=== PATIENT | female | born 1980 | race American Indian/Alaskan Native ===

== ENCOUNTER 2020-01-17 03:02 | Emergency (ER) | payer OTHER ==
[2020-01-17 04:20] LABS: Basophils % (Auto) 0.6 % (0.0-1.8); Eosinophils % (Auto) 0.4 % (0.0-4.3); Hematocrit 36.1 % (30.3-42.9); Hemoglobin 11.7 gm/dl (10.1-14.3); Lymphocytes # (Auto) 0.5 K/mm3 (1.2-5.4); Lymphocytes % (Auto) 10.3 % (13.4-35.0); Mean Corpuscular HGB Conc 33 % (30-34); Mean Corpuscular Volume 84 fl (79-97); Monocytes # (Auto) 0.2 K/mm3 (0.0-0.8); Monocytes % (Auto) 4.7 % (0.0-7.3); Platelet Count 220 K/mm3 (140-440); Red Blood Count 4.32 M/mm3 (3.65-5.03); Red Cell Distribution Width 16.5 % (13.2-15.2)
[2020-01-17 04:33] LABS: Alanine Aminotransferase 7 units/L (7-56); Albumin 4.1 g/dL (3.9-5); BUN/Creatinine Ratio 8; Blood Urea Nitrogen 5 mg/dL (7-17); Calcium 8.9 mg/dL (8.4-10.2); Hemolysis Index 20
[2020-01-17 04:56] LABS: Mucus,Urine FEW /HPF; WBC,Urine < 1.0 /HPF (0.0-6.0)
[2020-01-17 04:57] LABS: Bilirubin,Urine NEG (Negative); Blood,Urine NEG (Negative); Color,Urine Straw (Yellow); Protein,Urine <15 mg/dL mg/dL (Negative); Urobilinogen,Urine < 2.0 mg/dL (<2.0)
--- NOTE | 2020-01-17 06:26 | Emergency Department Report ---
HPI - General Chief Complaint: Abdominal Pain PUI?: No Time Seen by Provider: 01/17/20 06:12 - [facility] HPI: Room 1 The patient is a 39-year-old female present with a chief complaint of abdominal pain. The patient states she is with an LMP of 12/18/2019. The patient states last evening at approximate 22: 3 0 she developed rectal pressure and then low back and lower abdominal pressure. Patient states the pain was a const ant waxing and waning. Patient denies vaginal bleeding, nausea/vomiting, fever or dysuria. Patient states she feels a lot better currently giving her pressure score 4-5/10. The patient has seen an [facility] [employer] for this with the first ultrasound did not yet reveal an IUP so she is scheduled for a second ultrasound in 4 days ED Past Medical Hx - Past Medical History Previous Medical History?: No - Surgical History Past Surgical History?: Yes Additional Surgical History: LEEP - Family History Family history: no significant - Social History Smoking Status: Never Smoker Substance Use Type: None (Denies illicit drug use) - Medications Home Medications: Home Medications Medication Instructions Recorded Confirmed Last Taken Type HYDROcodone/APAP 5-325 [[place] 1 - 2 each PO Q6HR PRN #10 tablet 01/17/20 Unk nown Rx 5/325] Ibuprofen [Motrin 800 MG tab] 800 mg PO Q8HR PRN #20 tablet 01/17/20 Unknown Rx ED Review of Systems ROS: Stated complaint: ABD PAIN Other details as noted in HPI Constitutional: denies: fever Eyes: denies: eye pain ENT: denies: throat pain Respiratory: no symptoms reported Cardiovascular: denies: chest pain Endocrine: no symptoms reported Gastrointestinal: abdominal pain. denies: nausea, vomiting Genitourinary: denies: dysuria, abnormal menses Musculoskeletal: back pain Neurological: denies: headache Physical Exam - Physical Exam Vital Signs: Vital Signs 01/17/20 03:27 Temperature 98.2 F Pulse Rate 66 Respiratory 18 Rate Blood Pressure 99/68 O2 Sat by Pulse 100 Oximetry Physical Exam: GENERAL: The patient is well-developed well-nourished female lying on stretcher not appearing to be in acute distress. [] HEENT: Normocephalic. Atraumatic. Extraocular motions are intact. Patient has moist mucous membranes. NECK: Supple. Trachea midline CHEST/LUNGS: There is no respiratory distress noted. HEART/CARDIOVASCULAR: Regular. There is no tachycardia. There is no gallop rub or murmur. ABDOMEN: Abdomen is soft, nontender. Patient has normal bowel sounds. There is no abdominal distention. SKIN: There is no rash. There is no edema. There is no diaphoresis. NEURO: The patient is awake, alert, and oriented. The patient is cooperative. The patient has normal speech MUSCULOSKELETAL: There is no evidence of acute injury. ED Course Vital Signs 01/17/20 03:27 Temperature 98.2 F Pulse Rate 66 Respiratory 18 Rate Blood Pressure 99/68 O2 Sat by Pulse 100 Oximetry - Consultations Consultation #1: 01/17/20 08:21 [facility] [employer] paged 01/17/20 08:[address] Hendrix-states the patient's serum quant was higher in the office approximate 34,000 and initially they were able to see a possible adnexal mass. It is possible the patient may be having a tubal . Recommend pain medication and follow-up in the office tomorrow ED Medical Decision Making - Lab Data Result diagrams: 01/17/20 03:42 01/17/20 03:42 Laboratory Tests 01/17/20 01/17/20 01/17/20 03:42 03:42 03:42 WBC 5.1 RBC 4.32 Hgb 11.7 Hct 36.1 MCV 84 MCH 27 L MCHC 33 RDW 16.5 H Plt Count 220 Lymph % (Auto) 10.3 L [place] % (Auto) 4.7 Eos % (Auto) 0.4 Baso % (Auto) 0.6 Lymph # 0.5 L [place] # 0.2 Eos # 0.0 Baso # 0.0 Seg Neutrophils % 84.0 H Seg Neutrophils # 4.3 Sodium 138 Potassium 3.7 Chloride 103.9 Carbon Dioxide 21 L Anion Gap 17 BUN 5 L Creatinine 0.6 L Estimated GFR > 60 BUN/Creatinine Ratio 8 Glucose 103 H Calcium 8.9 Total Bilirubin 0.40 AST 14 ALT 7 Alkaline Phosphatase 47 Total Protein 6.5 Albumin 4.1 Albumin/Globulin Ratio 1.7 HCG, Quant 15068 H Urine Color Urine Turbidity Urine pH Ur Specific [place] Urine Protein Urine Glucose (UA) Urine Ketones Urine Blood Urine Nitrite Ur Reducing Substances Urine Bilirubin Urine Ictotest Urine Urobilinogen Ur Leukocyte Esterase Urine WBC (Auto) Urine RBC (Auto) U Epithel Cells (Auto) Urine Mucus 01/17/20 04:35 WBC RBC Hgb Hct MCV MCH MCHC RDW Plt Count Lymph % (Auto) [place] % (Auto) Eos % (Auto) Baso % (Auto) Lymph # [place] # Eos # Baso # Seg Neutrophils % Seg Neutrophils # Sodium Potassium Chloride Carbon Dioxide Anion Gap BUN Creatinine Estimated GFR BUN/Creatinine Ratio Glucose Calcium Total Bilirubin AST ALT Alkaline Phosphatase Total Protein Albumin Albumin/Globulin Ratio HCG, Quant Urine Color Straw Urine Turbidity Clear Urine pH 6.0 Ur Specific [place] 1.005 Urine Protein <15 mg/dl Urine Glucose (UA) Neg Urine Ketones Tr Urine Blood Neg Urine Nitrite Neg Ur Reducing Substances Not Reportable Urine Bilirubin Neg Urine Ictotest Not Reportable Urine Urobilinogen < 2.0 Ur Leukocyte Esterase Neg Urine WBC (Auto) < 1.0 Urine RBC (Auto) 1.0 U Epithel Cells (Auto) 1.0 Urine Mucus Few - Radiology Data Radiology results: report reviewed (Pelvic ultrasound), image reviewed (Pelvic ultrasound) [address] [address] Ultrasound Report Signed Patient: KAYA MURO MR#: [id number] : 1980 Acct:[id number] Age/Sex: 39 / F ADM Date: 01/17/20 Loc: ED Attending Dr: Ordering Physician: ALVIN GREENBERG MD Date of Service: 01/17/20 Procedure(s): US OB transvaginal Accession Number(s): [id number] cc: Smiley SAUCEDO ULTRASOUND OBSTETRIC INDICATION: Lower abdominal and rectal pressure. TECHNIQUE: Transabdominal and Transvaginal. COMPARISON: None available. FINDINGS: The uterus measures 9.0 x 5.4 x 5.6 cm without a suspicious mass. No intrauterine gestational sac is identified. The endometrial stripe appears un remarkable and measures 12 mm in thickness. Multiple follicles in the right ovary measure up to 1.3 cm. There is expected color flow in the ovaries without a suspicious adnexal mass. A small amount of free fluid is seen along the cul-de-sac. IMPRESSION: No sonographic evidence of an intrauterine/ectopic or other acute abnormality of the pelvis. Signer Name: Lucio Michele MD Signed: 01/17/2020 7:42 AM Workstation Name: [id number] Transcribed By: [place] Dictated By: Lucio Michele MD Electronically Authenticated By: Lucio Michele MD Signed Date/Time: 01/17/20741 DD/ 8 TD/TT: - Differential Diagnosis UTI, , ectopic Critical care attestation.: If time is entered above; I have spent that time in minutes in the direct care of this critically ill patient, excluding procedure time. ED Disposition Clinical Impression: Tubal Disposition: DC-01 TO HOME OR SELFCARE Is pt being admited?: No Does the pt Need Aspirin: No Condition: Stable Instructions: Abdominal Pain (ED) Additional Instructions: Return to the emergency department should you develop worsening symptoms, inability to tolerate food or liquids, high fever or any other concerns Prescriptions: Ibuprofen [Motrin 800 MG tab] 800 mg PO Q8HR PRN #20 tablet PRN Reason: Pain, Moderate (4-6) HYDROcodone/APAP 5-325 [[place] 5/325] 1 - 2 each PO Q6HR PRN #10 tablet PRN Reason: Pain Referrals: AZALIA GORDON MD [Primary Care Provider] - 01/18/20 Time of Disposition: 09:13
--- NOTE | 2020-01-17 07:46 | Ultrasound Report ---
ULTRASOUND OBSTETRIC INDICATION: Lower abdominal and rectal pressure. TECHNIQUE: Transabdominal and Transvaginal. COMPARISON: None available. FINDINGS: The uterus measures 9.0 x 5.4 x 5.6 cm without a suspicious mass. No intrauterine gestational sac is identified. The endometrial stripe appears unremarkable and measures 12 mm in thickness. Multiple follicles in the right ovary measure up to 1.3 cm. There is expected color flow in the ovari es without a suspicious adnexal mass. A small amount of free fluid is seen along the cul-de-sac. IMPRESSION: No sonographic evidence of an intrauterine/ectopic or other acute abnormality of the pelvis . Signer Name: Lucio Michele MD Signed: 01/17/2020 7:42 AM Workstation Name: [id number]
[2020-01-17 08:09] VITALS: BP 106/70
== END 2020-01-17 09:37 | disposition home or self-care (01) ==
LOC: ED 03:02
DX: O00.109 Unspecified tubal pregnancy without intrauterine pregnancy (principal); Z79.1 Long term (current) use of non-steroidal anti-inflammatories (NSAID); Z79.899 Other long term (current) drug therapy; Z91.040 Latex allergy status
CPT/HCPCS: 36415; 76801; 76817; 80053; 81001; 84702; 85025

== ENCOUNTER 2020-12-07 06:10 | Day surgery (SDC) | payer OTHER ==
[~2020-12-07 06:10] MED LIST: ACETAMINOPHEN 500 MG TAB PO SCH; CELECOXIB 200 MG CAP PO NR; GABAPENTIN 300 MG CAP PO NR; LACTATED RINGERS 1,000 ML IV SCH; MIDAZOLAM 2 MG/2 ML INJ IV NR
--- NOTE | 2020-12-07 06:30 | Short Stay Summary ---
Short Stay Documentation Date of service: 12/07/20 Narrative H&P: 40y/o with undesired fertility. The patient has elected for permanent sterilization. She declines other contraceptive options. - History Principal diagnosis: Unwanted fertility Past Medical History: other (ectopic ) Past Surgical History: No surgical history Social history: single - Allergies and Medications Current Medications: Allergies latex Allergy (Verified 01/17/20 03:38) Hives Home Medications Medication Instructions Recorded Confirmed Last Taken Type Montelukast [Singulair] 10 mg PO QPM 11/30/20 11/30/20 Unknown History Valacyclovir HCl [Valtrex] 1,000 mg PO HS 11/30/20 11/30/20 Unknown History Active Medications Acetaminophen (Acetaminophen 500 Mg Tab) 1,000 mg PO PREOP PIYUSH Stop: 12/07/20 20:00 Celecoxib (Celecoxib 200 Mg Cap) 200 mg PO PREOP NR Stop: 12/07/20 20:00 Gabapentin (Gabapentin 300 Mg Cap) 300 mg PO PREOP NR Stop: 12/07/20 20:00 Lactated Ringer's (Lactated Ringers) 1,000 mls @ 100 mls/hr IV DIRECT PIYUSH Stop: 12/07/20 23:59 Midazolam HCl (Midazolam 2 Mg/2 Ml Inj) 2 mg IV PREOP NR Stop: 12/07/20 20:00 - Physical exam General appearance: no acute distress Integumentary: no rash HEENT: Atraumatic Lungs: Clear to auscultation Breasts: deferred Heart: Regular rate Gastrointestinal: normal Female Genitourinary: deferred Rectal Exam: deferred - Brief post op/procedure progress note Date of procedure: 12/07/20 Pre-op diagnosis: Unwanted fertility Post-op diagnosis: same Procedure: Laparoscopic bilateral tubal ligation with Filshie clips Anesthesia: TERESAA Surgeon: AZALIA GORDON Estimated blood loss: minimal Pathology: none Condition: stable - Hospital course Hospital course: The patient was admitted the day of surgery underwent a laparoscopic bilateral tubal ligation. Please see operative note for details of surgery. Postoperative course was uneventful. - Disposition Condition at discharge: Good Disposition: DC-01 TO HOME OR SELFCARE Short Stay Discharge Plan Activity: other (Pelvic rest for 1 week) Diet: regular Additional Instructions: Follow-up is not required Follow-up as needed Prescriptions: Ibuprofen [Motrin] 800 mg PO Q8HR PRN #30 tablet PRN Reason: Pain , Severe (7-10) HYDROcodone/APAP 5-325 [[place] 5/325] 1 each PO Q6HR PRN #20 tablet PRN Reason: Pain
[2020-12-07] MEDS ORDERED: BACTERIOSTATIC SODIUM CHLORIDE 0.9% 30 ML VIAL INFILTRATI ONE (06:41)
[2020-12-07] MEDS ORDERED: BUPIVACAINE/PF (0.5%) 5 MG/1 ML 10 ML VIAL INFILTRATI ONE ×2 (07:11→08:06)
--- NOTE | 2020-12-07 07:12 | Anesthesia Consultation ---
Anesthesia Consult and Med Hx Date of service: 12/07/20 - Airway Anesthetic Teeth Evaluation: Good ROM Head & Neck: Adequate Mental/Hyoid Distance: Adequate Mallampati Class: Class II Intubation Access Assessment: Good - Pulmonary Exam CTA: Yes - Cardiac Exam Cardiac Exam: RRR - Pre-Operative Health Status ASA Pre-Surgery Classification: ASA2 Proposed Anesthetic Plan: General - Central Nervous System Hx Psychiatric Problems: No - Other Systems Hx Cancer: No
--- NOTE | 2020-12-07 07:13 | Anesthesia Day of Surgery ---
Anesthesia Day of Surgery - Day of Surgery Patient Examined: Yes Patient H&P Reviewed: Yes Patient is NPO: Yes
[2020-12-07] MEDS ORDERED: ONDANSETRON 4 MG/2 ML INJ ONE (07:21)
[2020-12-07] MEDS ORDERED: LIDOCAINE MPF (2%) 20 MG/1 ML VIAL 5 ML ONE (07:21)
[2020-12-07] MEDS ORDERED: dexAMETHasone 20 MG/5 ML VIAL ONE (07:21)
[2020-12-07] MEDS ORDERED: ROCURONIUM 50 MG/5 ML INJ IV ONE (07:21)
[2020-12-07] MEDS ORDERED: SUCCINYLCHOLINE CHLORIDE 200 MG/10 ML INJ MDV ONE (07:21)
[2020-12-07] MEDS ORDERED: fentaNYL 100 MCG/2 ML INJ ONE (07:22)
[2020-12-07] MEDS ORDERED: propofoL 200 MG/20 ML VIAL IV ONE (07:22)
[2020-12-07] MEDS ORDERED: ONDANSETRON 4 MG/2 ML INJ IV PRN (08:00)
[2020-12-07] MEDS ORDERED: SODIUM CHLORIDE 0.9% IRR 1,500 ML BOTTLE IR ONE (08:07)
[2020-12-07] MEDS ORDERED: SUGAMMADEX SODIUM 200 MG/2 ML VIAL IV ONE (08:10)
--- NOTE | 2020-12-07 08:16 | Operative Report ---
Operative Report Operative Report: Date of surgery: December 07, 2020 Preoperative diagnosis: Unwanted fertility Postoperative diagnosis: Same as above Procedure: Laparoscopic bilateral tubal ligation with Filshie clips Surgeon: Janina Murray M.D. Anesthesia: General endotracheal anesthesia Estimated blood loss: Minimal Findings: Right hydrosalpinx; left ovarian cyst Indication: 40-year-old -0-1-2 with a history of unwanted fertility. The patient is elected for permanent sterilization Procedure: The patient was taken to the operating room and given general endotracheal anesthesia without complication. The patient is prepped and draped in a normal sterile fashion. A bivalve speculum was placed in the patient's vagina and a single-tooth tenaculum was placed on the anterior lip of the cervix .A uterine acorn manipulator was placed, and the bivalve speculum was then removed. Attention was then turned to the patient's abdomen where a 5 mm infraumbilical skin incision was then made. A Veress needle was placed and peritoneal entry was verified water-filled syringe. Insufflation of the peritoneal cavity was performed with CO2 gas. A 5 mm trocar was placed and the laparoscope was then inserted. The patient was then placed in Trendelenburg. A 7 mm suprapubic skin incision was then made. Under direct visualization a 7 mm trocar was then placed. An additional 5 mm left lateral trocar was also placed. General survey of the patient's abdomen revealed right hydrosalpinx and a left ovarian cyst. The fallopian tube was then followed out to the fimbriated end. A Filshie clip was applied to the ampullary portion of the tube this was performed on the contralateral side as well. The trocars were then removed. The pneumoperitoneum was then released. The 5 mm trocar laparoscope was then removed. The skin incisions were then closed with 4-0 Monocryl. The incisions were injected with quarter percent Marcaine. Dressings were applied to the incision. The vaginal instruments were then removed atraumatically. Then successfully extubated and taken to the recovery room. All sponge laps and ne edle counts were correct x2.
[2020-12-07] MEDS ORDERED: hydrALAZINE 20 MG/1 ML INJ IV PRN (08:35)
[2020-12-07] MEDS: HYDROmorphone 1 MG/1 ML INJ IV PRN ×2 (08:40→08:50)
[2020-12-07] MEDS ORDERED: HYDROcodone/ACETAMINOPHEN 5-325 MG TAB PO PRN (09:30)
[2020-12-07] MEDS ORDERED: IBUPROFEN 800 MG TAB PO PRN (09:30)
--- NOTE | 2020-12-07 09:38 | Post Anesthesia Evaluation ---
- Post Anesthesia Evaluation Patient Participated: Yes Airway Patent: Yes Stable Respiratory Function: Yes Nausea/Vomiting: No Temp > 96.8F: Yes Pain Manageable: Yes Adequeate Hydration: Yes Anesthesia Complications: No
[2020-12-07 09:56] VITALS: BP 147/89
== END 2020-12-07 10:10 | disposition home or self-care (01) ==
LOC: OR 06:10
PROVIDERS: ATTEND Obstetrics & Gynecology
DX: Z30.2 Encounter for sterilization (principal); G43.909 Migraine, unspecified, not intractable, without status migrainosus; Z79.899 Other long term (current) drug therapy; Z91.041 Radiographic dye allergy status; Z98.890 Other specified postprocedural states
CPT/HCPCS: 58671; 81025; J0330; J1100; J1170; J2250; J2405; J2704; J3010; J7120